=== PATIENT | male | born 2000 | race African-American/Black ===

== ENCOUNTER 2021-12-13 19:50 | Emergency (ER) | payer OTHER ==
[2021-12-13 20:24] VITALS: BP 135/78; PULSE 83; TEMP 98.6; BMI 23.1
[2021-12-13] MEDS ORDERED: AMOXICILLIN 500 MG CAPSULE (FP) PO ONE (21:35)
[2021-12-13] MEDS ORDERED: predniSONE 20 MG TABLET (UD) PO ONE (21:36)
[2021-12-13] MEDS ORDERED: AMOX TR/POT CLAV 500MG/125MG TABLETS (FP) ONE (21:48)
[2021-12-13] MEDS ORDERED: predniSONE 20 MG TABLET (UD) ONE (21:49)
== END 2021-12-13 22:01 | disposition home or self-care (01) ==
LOC: JER 19:50 → JERFT 19:50
DX: J03.90 Acute tonsillitis, unspecified (principal)
CPT/HCPCS: 87651; 99283-25

== ENCOUNTER 2024-02-18 07:21 | Emergency (ER) | payer OTHER ==
[2024-02-18] MEDS ORDERED: KETOROLAC TROMETHAMINE 30 MG/1 ML VIAL IM ONE (08:01)
[2024-02-18] MEDS ORDERED: KETOROLAC TROMETHAMINE 30 MG/1 ML VIAL ONE (09:11)
[2024-02-18 09:37] VITALS: BP 127/69; PULSE 67; RESP 16; TEMP 98; BMI 23.0
== END 2024-02-18 09:00 | disposition home or self-care (01) ==
LOC: JER 07:21
DX: M25.562 Pain in left knee (principal); W10.8XXA Fall (on) (from) other stairs and steps, initial encounter
CPT/HCPCS: 73564-TC-LT-FY; 99283-25